=== PATIENT | female | born 1990 | race African-American/Black ===

== ENCOUNTER 2020-12-24 13:46 | Inpatient (IN) ==
[2020-12-24] MEDS ORDERED: OXYTOCIN 30 UNITS/500 ML BAG IV PRN ×2 (13:49→16:31)
[2020-12-24 14:11] LABS: Hematocrit (blood only) 32.6 % (37-47); Hemoglobin 11.1 g/dL (12.0-16.0); Mean Corpuscular Hemoglobin 29.6 pg (25-34); Mean Corpuscular Volume 86.9 fL (80-100); Mean Platelet Volume 9.7 fL (7.4-10.4); Platelet Count 225 K/uL (130-400); RDW Coefficient of Variation 15.7 % (11.5-14.5); RDW Standard Deviation 50.7 fL (36.4-46.3); Red Blood Count 3.75 M/uL (4.2-5.4); White Blood Count 5.71 K/uL (4.8-10.8)
[2020-12-24 14:37] LABS: Albumin Level 2.4 gm/dl (3.4-5.0); BUN Creatinine Ratio 10.1 (10-20); Calcium 7.6 mg/dl (8.5-10.1); Creatinine Clr Calc Pharmacy 117.8 ml/min; Est GFR (African American) 133.8; Est GFR (Non-African American) 115.5; Potassium 3.2 mmol/L (3.5-5.1)
[2020-12-24 14:39] LABS: Albumin Globulin Ratio 0.5 (0.9-2); Bilirubin,Total 0.3 mg/dl (0.2-1); Globulin 4.8 gm/dl (2.5-4.0); Total Protein 7.2 gm/dl (6.4-8.2)
[2020-12-24] MEDS: LACTATED RINGER'S 1,000 ML IV PRN ×2 (14:44→19:07)
[2020-12-24] MEDS ORDERED: SODIUM CHLORIDE 0.9% INJ 10 ML VIAL ONE (19:35)
[2020-12-24] MEDS ORDERED: fentaNYL citrate 100 MCG/2 ML VIAL ONE (19:35)
[2020-12-24] MEDS ORDERED: BUPIVACAINE 0.25% 30 ML VIAL ONE ×2 (19:35→23:25)
[2020-12-24] MEDS ORDERED: ePHEDrine sulfate 50 MG/ML AMP ONE (19:35)
[2020-12-24] MEDS ORDERED: fentaNYL 2MCG/ML ROPIVACAINE 1.25MG/ML 100 ML BAG EPI ONE (19:35)
[2020-12-24] MEDS ORDERED: NALOXONE HCL 1 MG in SODIUM CHLORIDE 0.9% 1000ML 1,000 ML IV PRN (19:44)
[2020-12-24] MEDS ORDERED: ePHEDrine sulfate 50 MG/ML AMP IV PRN (19:44)
[2020-12-24] MEDS ORDERED: ONDANSETRON INJ 2 MG/ML 2 ML VIAL IV PRN (19:44)
[2020-12-24] MEDS ORDERED: diphenhydrAMINE 50 MG/ML VIAL IV PRN (19:44)
[2020-12-24] MEDS ORDERED: NALOXONE HCL 0.4 MG/1 ML VIAL/CARP IV PRN (19:44)
[2020-12-24] MEDS ORDERED: fentaNYL 2MCG/ML ROPIVACAINE 1.25MG/ML 100 ML BAG EPI PRN ×2 (19:44→23:35)
--- NOTE | 2020-12-24 19:51 | Anesthesiology Consultation ---
Date of Service December 24, 2020 Covid 19 negative on 12/24/20. Assessment & Plan Chart Review Chart Review: Patient NOT seen in Pre Admission Testing and Acceptable Risk for Labor Epidural Consults Requested none ASA ASA2 Proposed Anesthesia Anesthesia Type: Labor Epidural and CSE Risk / Benefits Reviewed With: PT / POA / Parent / Guardian, Accepts Plan and Informed Consent Obtained History Height/Weight Height: 5 ft 6 in Weight: 71.214 kg Allergies Allergy/AdvReac Type Severity Reaction Status Date / Time No Known Allergies Allergy Verified 12/24/20 13:59 Medications Home Medications Medication Instructions Recorded Confirmed Last Taken folic acid 5 mg PO DAILY 12/24/20 12/24/20 12/23/20 08:00 prenat.vits,glenn,jvb-raki-tnmja 1 tab PO DAILY 12/24/20 12/24/20 12/23/20 08:00 [ Vitamin] Active Medications Generic Name Dose Route Start Last Admin Trade Name Freq PRN Reason Stop Dose Admin Lactated Ringer's 1,000 mls @ 125 mls/hr 12/24/20 13:49 12/24/20 19:07 Lr IV 12/26/20 13:48 125 mls/hr .Q8H PRN Administration L&D Protocol Protocol Oxytocin 30 units in 500 mls @ 5 mls/hr 12/24/20 16:31 12/24/20 18:30 Pitocin IV 12/26/20 16:30 0.3 units/hr .Q24H PRN 5 mls/hr Labor Induction/Augmentation Titration Protocol 0.3 UNITS/HR NPO Date Last Intake of Fluids: 12/24/20 Time Last Intake of Fluids: 19:00 Date Last Intake of Solids: 12/24/20 Time Last Intake of Solids: 13:00 Past Medical History Medical History Miscarriage Patient denies significant medical history Exercise / Class Metabolic Activity II 4-5 Yardwork/Stairs/Walk up hill Past Family History Family History Denies family history of Ovarian cancer Breast cancer Colorectal cancer Past Surgical History Surgical History No history of previous surgery Past Anesthesia History No Hx of Anesthesia Complications and No Family Hx of Anesthesia Complications History of PONV No Hx of PONV and No Hx of Motion Sickness Social History Smoking Status: Never smoker Hx Alcohol Use: No Hx Substance Use: No substance use type: does not use Review of Systems no chest pain or sob Physical Exam Vital Signs Last Vital Signs Temp 36.8 C 12/24/20 19:15 Pulse 80 12/24/20 19:44 Resp 18 12/24/20 19:15 BP 92/57 L 12/24/20 19:22 Pulse Ox 98 12/24/20 19:44 ENMT Mouth: no TMJ abnormality Thyromental Distance: > or= 3.5 Finger Breadths Mallampati Class: II Neck normal visual inspection Respiratory normal respiratory effort Auscultation: lungs clear to auscultation bilaterally Cardiovascular Rate/Rhythm: regular rate and regular rhythm Musculoskeletal Spine: normal cervical ROM Neurologic moves all extremities Psychiatric Orientation: alert and oriented x 3 Testing Laboratory Results 12/24/20 13:58 12/24/20 13:58
--- NOTE | 2020-12-24 21:14 | Labor Progress Brief Note ---
Date of Service December 24, 2020 Subjective Comfortable with epidural Assessment & Plan Admission and Anticipated Discharge Date Admission Date: December 24, 2020 Physical Exam Physical Exam: 3/80/-2 LOF minimal, clear per RN FHT cat 1 Mercedes Q4 Pit @ 7 Results & Data ([facility]) Vital Signs (Past 12 Hours) Vital Signs Temp Pulse Resp BP Pulse Ox 12/24/20 21:10 81 99 12/24/20 21:05 84 98 12/24/20 21:00 76 18 98 12/24/20 20:58 80 105/67 12/24/20 20:55 80 99 12/24/20 20:50 76 97 12/24/20 20:45 77 97 12/24/20 20:44 75 106/60 12/24/20 20:40 74 98 12/24/20 20:35 74 98 12/24/20 20:30 75 18 105/59 L 97 12/24/20 20:24 82 97 12/24/20 20:19 79 97 12/24/20 20:15 18 12/24/20 20:14 77 97 12/24/20 20:13 82 100/65 12/24/20 20:11 83 100/62 12/24/20 20:09 79 101/60 98 12/24/20 20:08 88 103/58 L 12/24/20 20:05 83 107/66 12/24/20 20:04 91 H 120/71 97 12/24/20 19:59 75 99 12/24/20 19:54 88 100 12/24/20 19:49 86 100 12/24/20 19:44 80 98 12/24/20 19:22 85 92/57 L 12/24/20 19:15 98.2 F 18 12/24/20 19:06 80 88/55 L 12/24/20 19:05 75 88/50 L 12/24/20 19:04 77 126/47 L 12/24/20 15:57 98.1 F 90 18 106/59 L 12/24/20 15:56 90 106/59 L 12/24/20 13:53 86 108/65 12/24/20 13:52 98.1 F 18 Coding Level of Care Code None
--- NOTE | 2020-12-25 02:22 | Delivery Summary ---
Vaginal Delivery Summary Date of Service December 25, 2020 Vaginal Delivery Summary DIAGNOSES: 1. Rader intrauterine at 39w1d gestation. 2. PROM. 3. Group B Streptococcus unknown, collected yesterday. 4. IUGR (9% EFW) PROCEDURE: Spontaneous vaginal delivery and repair of 1st degree laceration. SURGEON: Dee Enamorado MD. DIRECTOR OF CODING: None. ESTIMATED BLOOD LOSS: 250 mL. COMPLICATIONS: None. PLACENTA: Spontaneous and intact with a 3-vessel cord. DISPOSITION: Stable to labor and delivery. DESCRIPTION: The patient pushed well and brought the head to in OA position. The infant's head was allowed to deliver with contraction force and no further active pushing, with the perineum protected during this time. The shoulders delivered easily with a maternal pushing effort. There was no nuchal cord. The body delivered without any difficulty, and the infant was placed on the maternal abdomen. It was vigorous and moving all extremities, and making respiratory efforts. The cord was doubly clamped by the MD and then cut. The placenta delivered spontaneously and was noted to be intact and with a 3VC. The cervix, vagina and perineum were examined and were found to have a first degree laceration which was repaired with 3-0 vicryl in a running locked manner. The fundus was firm and lochia minimal immediately after delivery. [facility] Vaginal Delivery Charge Vaginal Delivery Codes: 24968 global code for the antepartum, delivery, and post-
[2020-12-25] MEDS ORDERED: HYDROCORTISONE ACETATE 25 MG SUPP PR PRN (03:54)
[2020-12-25] MEDS ORDERED: ACETAMINOPHEN 325 MG TAB PO PRN (03:54)
[2020-12-25] MEDS ORDERED: oxyCODONE/ACETAMINOPHEN 5mg/325mg TAB PO PRN (03:54)
[2020-12-25] MEDS ORDERED: SUPERCREAM 0.870% 15 GM JAR EXT PRN (03:54)
[2020-12-25] MEDS ORDERED: DIPHTHERIA/TETANUS/PERTUSSIS 0.5 ML SYR/VIAL IM ONE (03:54)
[2020-12-25] MEDS ORDERED: IBUPROFEN 600 MG TAB PO ONE (03:57)
[2020-12-25] MEDS: PRENATAL VITAMIN 1 TAB PO SCH (07:44)
[2020-12-25] MEDS: DOCUSATE SODIUM 100 MG CAP PO SCH (07:44)
[2020-12-25] MEDS: IBUPROFEN 600 MG TAB PO PRN ×2 (11:34→17:53)
[2020-12-26] MEDS: IBUPROFEN 600 MG TAB PO PRN ×2 (04:31→15:40)
[2020-12-26 06:01] LABS: Hematocrit (blood only) 29.5 % (37-47); Hemoglobin 9.8 g/dL (12.0-16.0); Mean Corpuscular Hemoglobin 28.7 pg (25-34); Mean Corpuscular Hgb Conc 33.2 g/dL (32-36); Mean Corpuscular Volume 86.3 fL (80-100); Mean Platelet Volume 9.9 fL (7.4-10.4); Platelet Count 209 K/uL (130-400); RDW Coefficient of Variation 15.7 % (11.5-14.5); RDW Standard Deviation 49.7 fL (36.4-46.3); Red Blood Count 3.42 M/uL (4.2-5.4); White Blood Count 8.17 K/uL (4.8-10.8)
[2020-12-26] MEDS: DOCUSATE SODIUM 100 MG CAP PO SCH (09:12)
[2020-12-26] MEDS: BENZOCAINE 20% AER SPR 82.5 GM CAN EXT PRN ×2 (09:12→15:40)
[2020-12-26] MEDS: PRENATAL VITAMIN 1 TAB PO SCH (09:12)
--- NOTE | 2020-12-26 09:38 | Anesthesia Procedure Note ---
Date of Service December 26, 2020 Anesthesia Post Epidural Note Vital Signs Vital Signs: Temp Pulse Resp BP Pulse Ox 36.7 C 72 18 109/74 97 12/25/20 23:30 12/25/20 23:30 12/25/20 23:30 12/25/20 23:30 12/25/20 19:45 Pain Intensity Abdomen: Pain Intensity: 2 Notes Mental Status: alert / awake / arousable Pain: adequately controlled Airway Patency, RR, SpO2: stable & adequate BP & HR: stable & adequate Hydration State: stable & adequate Anesthetic Complications: no major complications apparent Epidural: Removed without complications and With tip intact
--- NOTE | 2020-12-26 09:49 | Obstetrical Progress Note ---
Date of Service December 26, 2020 Assessment & Plan (1) Encounter for postoperative care: 30yo s/p . Doing well. Stable for discharge Subjective Ambulation: ambulating normally Voiding: no voiding problems Passing Gas:: Yes Diet Tolerance:: regular diet Lochia:: Moderate Physical Exam Constitutional WD/WN, vitals as above Respiratory normal respiratory effort; no respiratory distress and no labored breathing Gastrointestinal (Abdomen) Inspection/Auscultation: abdomen normal to inspection; abdomen not distended Percussion/Palpation: abdomen soft; abdomen nontender, no guarding and abdomen not rigid Genitourinary OB Exam Abdomen: + fundal height Fundus: + firm and + relation to umbilicus (Below); not tender and not boggy Results & Data ([facility]) Vital Signs (Past 12 Hours) Vital Signs Temp Pulse Resp BP 12/25/20 23:30 36.7 C 72 18 109/74
== END 2020-12-26 17:30 | disposition home or self-care (01) | DRG 807 ==
LOC: 4S1 13:46 → OPB 13:46 → 4S1 13:50 → 4N 12-25 06:32

== ENCOUNTER 2024-09-02 18:09 | Inpatient (IN) ==
[2024-09-02] MEDS ORDERED: LIDOCAINE 1% LOCAL 20 ML VIAL INFIL PRN (19:52)
[2024-09-02] MEDS ORDERED: OXYTOCIN 30 UNITS/NSS 30 UNITS/500 ML BAG IV PRN (19:52)
[2024-09-02 20:21] LABS: Hematocrit (blood only) 34.4 % (37.0-47.0); Hemoglobin 11.5 g/dl (12.0-16.0); Mean Corpuscular Hemoglobin 29.1 pg (25.0-34.0); Mean Corpuscular Hgb Conc 33.4 g/dL (32.0-36.0); Mean Corpuscular Volume 87.1 fL (80.0-100.0); Mean Platelet Volume 10.1 fL (9.4-12.4); Platelet Count 242 K/uL (130-400); RDW Coefficient of Variation 13.3 % (11.5-14.5); RDW Standard Deviation 41.9 fL (36.4-46.3); Red Blood Count 3.95 M/uL (4.20-5.40); White Blood Count 7.36 K/ul (4.8-10.8)
--- NOTE | 2024-09-02 20:23 | History & Physical Report ---
Date of Service September 02, 2024 Assessment & Plan (1) Placental abnormality: Plan: 33 yo at 40 2/7 wga presents for IOL VSS Fetus cat 1 Labor - 35cc kennedy bulb placed after consent obtained. Will start pit GBS neg epidural prn Admission and Anticipated Discharge Date Admission Date: September 02, 2024 History of Present Illness Chief Complaint: IOL Primary Care Provider: NO PCP 33 yo at 40 2/7 wga presents for IOL. 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 2018 G2 SAB G3 2020 denies hx stis Allergies Allergy/AdvReac Type Severity Reaction Status Date / Time No Known Allergies Allergy Verified 09/01/24 13:20 Home Medications Medication Instructions Recorded Confirmed Type vit no.95-ferrous 1 tab PO DAILY 01/22/24 09/01/24 History fumarate 28 mg-folic acid 800 mcg tablet () Patient History Medical History (Updated 07/08/24 @ 11:02 by Ivory Mccann MD, FACOG) Threatened Encounter to determine viability of Encounter for IUD removal IUGR (intrauterine growth restriction) affecting care of mother Miscarriage Patient denies significant medical history Surgical History No history of previous surgery Family History Denies family history of Ovarian cancer Breast cancer Colorectal cancer Social History (Updated 02/15/24 @ 14:12 by Yoly Mckoy RN) Smoking Status: Never smoker Do You Dip or Chew Tobacco: No; Hx Alcohol Use: No Hx Substance Use: No Preferred Language: Georgian Visual Impairment: No Limitations 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 Required: No Beliefs That Will Affect Care: None marital status: marital status details: Dana (33) [phone] Current Living Situation: Spouse Current Living Situation Comment: lives with and 2 children current occupational status: unemployed 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 Feels Safe at Home: Yes Assistive Devices: None Physical Exam Genitourinary: OB Exam Abdomen: + vertex and + estimated weight (7-8) Manual OB Exam: + cervical dilation (1.5), + cervical effacement 50% and + station -2 OB Exam Monitor Tracing: + external FHT monitor used, + external uterine monitor used (irreg) and + category I (140/mod/+accel/-decel) Results & Data Vital Signs (Past 12 Hours) Vital Signs Temp Pulse Resp BP 09/02/24 19:29 95 H 124/76 09/02/24 19:26 18 09/02/24 19:26 98.8 F 18 Laboratory Results OB Labs: Blood Type O Positive 02/19/24 Antibody Screen NEGATIVE 02/19/24 Hgb 11.0 g/dl (12.0-16.0) L 06/11/24 Hct 33.1 % (37.0-47.0) L 06/11/24 MCV 86.0 fL (80.0-100.0) 02/19/24 Plt Count 358 K/uL (130-400) 02/19/24 Rubella IgG Antibody Immune (Immune) 02/19/24 RPR Nonreactive (Nonreactive) 02/19/24 Treponema pallidum Ab Negative (Negative) 06/11/24 Hep Bs Antigen Neg (Neg) 11/23/20 Hep Bs Antigen NON-REACTIVE (NON-REACTIVE) 02/19/24 Hepatitis C Ab (EIA) NON-REACTIVE (NON-REACTIVE) 02/19/24 HIV 1&2 Ab/P24 Ag 4thGn Neg (Neg) 11/23/20 HIV (1&2) Ag & Ab Conf NON-REACTIVE (NON-REACTIVE) 02/19/24 Glucose 1 Hr 50 gm 121 mg/dl (70-130) 06/11/24 OB Optional Labs: Chlamydia trachomatis RNA Not Detected (NotDetected) 02/19/24 Neisseria gonorrhoeae RNA Not Detected (NotDetected) 02/19/24 GBS neg Diagnostic Findings 08/05 EFW 43%, ant plac Coding Level of Care Code None Diagnoses Placental abnormality O43.109
[2024-09-02] MEDS: OXYTOCIN 30 UNITS/NSS 30 UNITS/500 ML BAG IV PRN (21:34)
[2024-09-02] MEDS: LACTATED RINGER'S 1,000 ML IV SCH (21:35)
[2024-09-02] MEDS ORDERED: NALOXONE HCL 1 MG in SODIUM CHLORIDE 0.9% 1,000 ML IV PRN (23:52)
[2024-09-02] MEDS ORDERED: ePHEDrine sulfate 50 MG/ML AMP IV PRN (23:52)
[2024-09-02] MEDS ORDERED: BUPIVACAINE 0.25% PF 30 ML VIAL EPI PRN (23:52)
[2024-09-02] MEDS ORDERED: diphenhydrAMINE 50 MG/ML VIAL IV PRN (23:52)
[2024-09-02] MEDS ORDERED: fentANYL 2 MCG/ML BUPIVacaine 0.125%-NSS 100ML BAG EPI PRN (23:52)
[2024-09-02] MEDS ORDERED: fentaNYL citrate PF 100 MCG/2 ML VIAL EPI PRN (23:52)
[2024-09-02] MEDS ORDERED: NALOXONE HCL 0.4 MG/1 ML VIAL/CARP IV PRN (23:52)
[2024-09-02] MEDS ORDERED: ONDANSETRON INJ 2 MG/ML 2 ML VIAL IV PRN (23:52)
[2024-09-02] MEDS ORDERED: ROPIVACAINE 0.5% PF 5 MG/ML 20 ML VIAL EPI PRN (23:52)
[2024-09-02] MEDS ORDERED: NALBUPHINE HCL INJ 10 MG/ML AMP IV PRN (23:52)
[2024-09-02] MEDS ORDERED: SODIUM CHLORIDE 0.9% PF INJ 10 ML VIAL EPI PRN (23:52)
[2024-09-02] MEDS ORDERED: LIDOCAINE 2% MPF LOCAL 5 ML VIAL EPI PRN (23:52)
--- NOTE | 2024-09-02 23:54 | Anesthesiology Consultation ---
Date of Service September 02, 2024 Assessment & Plan (1) Encounter for pre-operative examination: Chart Review Chart Review: Patient NOT seen in Pre Admission Testing and Acceptable Risk for Labor Epidural Consults Requested none History Height/Weight Height: 5 ft 6 in Weight: 83.915 kg Allergies Allergy/AdvReac Type Severity Reaction Status Date / Time No Known Allergies Allergy Verified 09/01/24 13:20 Medications Home Medications Medication Instructions Recorded Confirmed Last Taken vit no.95-ferrous 1 tab PO DAILY 01/22/24 09/01/24 1 Week Ago fumarate 28 mg-folic acid 800 mcg ~08/25/24 tablet () Active Medications Generic Name Dose Route Start Last Admin Trade Name Freq PRN Reason Stop Dose Admin Oxytocin 30 units in 500 mls @ 4 mls/hr 09/02/24 19:52 09/02/24 22:30 Pitocin 30 Units/Nss IV 09/04/24 19:51 0.24 units/hr .Q24H PRN 4 mls/hr Labor Induction/Augmentation Titration Protocol 0.24 UNITS/HR Lactated Ringer's 1,000 mls @ 50 mls/hr 09/02/24 21:00 09/02/24 23:45 Lr IV 09/03/24 20:59 999 mls/hr .Q20H BRUCE Titration Past Medical History Medical History (Updated 09/02/24 @ 23:54 by Min Marshall MD) Encounter for pre-operative examination IUGR (intrauterine growth restriction) affecting care of mother Patient denies significant medical history Past Family History Family History Denies family history of Ovarian cancer Breast cancer Colorectal cancer Past Surgical History Surgical History No history of previous surgery Social History Smoking Status: Never smoker Do You Dip or Chew Tobacco: No Hx Alcohol Use: No Hx Substance Use: No substance use type: does not use Physical Exam Vital Signs Last Vital Signs Temp 37.1 C 09/02/24 19:54 Pulse 81 09/03/24 00:13 Resp 18 09/02/24 22:30 BP 113/67 09/03/24 00:13 Pulse Ox 97 09/03/24 00:08 Testing Laboratory Results 09/02/24 20:07
[2024-09-03] MEDS: fentANYL 2 MCG/ML BUPIVacaine 0.125%-NSS 100ML BAG ONE (00:19)
[2024-09-03] MEDS: fentaNYL citrate PF 100 MCG/2 ML VIAL ONE (00:21)
[2024-09-03] MEDS: BUPIVACAINE 0.25% PF 30 ML VIAL ONE (00:21)
[2024-09-03] MEDS: LIDOCAINE 2%/EPINEPHRINE 1:200,000 20 ML PF ONE (00:22)
[2024-09-03] MEDS: BUPIVACAINE 0.25% PF 30 ML VIAL EPI STA (00:58)
[2024-09-03] MEDS: SODIUM CHLORIDE 0.9% PF INJ 10 ML VIAL ONE (00:58)
[2024-09-03] MEDS: ePHEDrine sulfate 50 MG/ML AMP ONE (00:58)
[2024-09-03] MEDS: SODIUM CHLORIDE 0.9% PF INJ 10 ML VIAL EPI STA (00:59)
[2024-09-03] MEDS: fentaNYL citrate PF 100 MCG/2 ML VIAL EPI STA (00:59)
[2024-09-03] MEDS: LIDOCAINE 2%/EPINEPHRINE 1:200,000 20 ML PF EPI STA (00:59)
--- NOTE | 2024-09-03 03:42 | Labor Progress Brief Note ---
Date of Service September 03, 2024 Subjective comfortable w/ epidural, balloon out Assessment & Plan (1) Placental abnormality: Plan: 33 yo at 40 2/7 wga presents for IOL VSS Fetus cat 1 Labor - bulb out, now 5+, bulging bag. Discussed arom, had to go home to watch other two kids and no one able to watch the kids right now. She would like to wait a little bit to see if will slowly progress on own and then he can make it back when childcare is available. Aware body may progress w/ srom or become complete in b/w GBS neg epidural in place Admission and Anticipated Discharge Date Admission Date: September 02, 2024 Physical Exam Genitourinary: Manual OB Exam: + cervical dilation 5 cm, + cervical effacement 70% and + station -1 and 0 OB Exam Monitor Tracing: + external FHT monitor used, + external uterine monitor used (q3) and + category I (140/mod/+accel/+early decel) bulging bag Results & Data Vital Signs (Past 12 Hours) Vital Signs Temp Pulse Resp BP Pulse Ox 09/03/24 03:33 85 98 09/03/24 03:28 85 95 09/03/24 03:26 80 113/59 L 09/03/24 03:23 81 98 09/03/24 03:18 85 94 09/03/24 03:13 81 96 09/03/24 03:10 84 110/59 L 09/03/24 03:08 86 98 09/03/24 03:03 95 H 97 09/03/24 03:00 86 18 94 09/03/24 02:58 85 97 09/03/24 02:53 99 H 98 09/03/24 02:48 93 H 96 09/03/24 02:43 88 96 09/03/24 02:40 100 H 115/58 L 09/03/24 02:38 88 95 09/03/24 02:35 80 94 09/03/24 02:33 84 97 09/03/24 02:30 18 09/03/24 02:30 18 09/03/24 02:28 85 95 09/03/24 02:25 81 117/59 L 09/03/24 02:23 84 95 09/03/24 02:19 86 94 09/03/24 02:18 88 96 09/03/24 02:13 89 96 09/03/24 02:10 86 110/62 09/03/24 02:08 88 95 09/03/24 02:03 81 95 09/03/24 01:58 86 96 09/03/24 01:56 96 H 119/67 09/03/24 01:53 91 H 96 09/03/24 01:49 88 94 09/03/24 01:48 82 94 09/03/24 01:43 83 95 09/03/24 01:40 89 120/66 09/03/24 01:38 80 94 09/03/24 01:37 83 94 09/03/24 01:33 80 95 09/03/24 01:32 85 94 09/03/24 01:30 18 09/03/24 01:30 18 09/03/24 01:28 81 94 09/03/24 01:27 83 94 09/03/24 01:25 80 115/67 09/03/24 01:23 79 95 09/03/24 01:18 80 95 09/03/24 01:13 82 97 09/03/24 01:10 81 120/69 09/03/24 01:08 88 98 09/03/24 01:03 85 96 09/03/24 01:00 18 09/03/24 01:00 18 09/03/24 00:58 83 96 09/03/24 00:57 94 H 116/75 09/03/24 00:53 81 96 09/03/24 00:48 80 97 09/03/24 00:43 83 98 09/03/24 00:41 85 119/72 09/03/24 00:38 80 95 09/03/24 00:33 82 97 09/03/24 00:30 18 09/03/24 00:30 98.6 F 18 09/03/24 00:28 86 97 09/03/24 00:25 81 115/65 09/03/24 00:23 86 97 09/03/24 00:22 86 119/64 09/03/24 00:20 86 119/63 09/03/24 00:19 88 121/67 09/03/24 00:18 86 97 09/03/24 00:16 87 116/66 09/03/24 00:13 96 09/03/24 00:13 89 09/03/24 00:13 81 113/67 09/03/24 00:10 81 117/70 09/03/24 00:08 80 97 09/02/24 23:18 82 117/60 09/02/24 22:30 18 09/02/24 22:30 18 09/02/24 19:54 98.8 F 18 09/02/24 19:29 95 H 124/76 09/02/24 19:26 18 09/02/24 19:26 98.8 F 18 Coding Level of Care Code None Diagnoses Placental abnormality O43.109
--- NOTE | 2024-09-03 06:14 | Delivery Summary ---
Vaginal Delivery Summary Date of Service September 03, 2024 Vaginal Delivery Summary [facility] PREOPERATIVE DIAGNOSIS: 1. Single intrauterine at 40 3/7 wga 2. Possible placental restrepo POSTOPERATIVE DIAGNOSIS: 1. Single intrauterine at 40 3/7 wga 2. Possible placental restrepo 3. Delivered PROCEDURE: 1. Normal spontaneous vaginal delivery. SURGEON: Thelma Yoon MD ANESTHESIA: Epidural. QUANTITATIVE BLOOD LOSS: 112 mL FLUIDS: Continuous LR. URINE OUTPUT: None. COMPLICATIONS: None. CONDITION: Stable. INDICATIONS: 33 yo at 40 3/7 wga presented for IOL. Induction was begun with kennedy bulb and pitocin. She received an epidural for pain control and bulb was found to be expulsed. She underwent srom and became complete and desired to push. FINDINGS: A viable female infant, weight pending with Apgars of 8 and 9 at 1 and 5 minutes respectively. SPECIMEN: Cord blood OPERATIVE REPORT: The patient progressed to 10 cm, 100% effaced and +2 station, pushed over intact perineum with anesthesia to deliver a viable female infant, weight and Apgars as above. Head of delivered in OA position. Tight nuchal cord could not be easily reduced. Body and shoulders were delivered without difficulty. was delivered to maternal abdomen and nursing staff. Delayed cord clamping was performed for 60 seconds. Cord was clamped and cut. Cord blood was obtained. Placenta delivered spontaneously intact with 3-vessel cord. IV oxytocin and fundal massage were given for excellent hemostasis. Vagina, cervix, perineum, and placenta were inspected. No lacerations were noted. Sponge and needle counts correct x2. No sponges were left behind. Mother and stable in immediate period. [facility] Vaginal Delivery Charge Vaginal Delivery Codes: 35312 global code for the antepartum, delivery, and post- Delivery Type Details: [facility]
[2024-09-03] MEDS ORDERED: BENZOCAINE 20% SPRY 85 APPLN/85 GM CAN EXT PRN (06:21)
[2024-09-03] MEDS ORDERED: OXYTOCIN 30 UNITS/NSS 30 UNITS/500 ML BAG IV PRN (06:21)
[2024-09-03] MEDS ORDERED: ACETAMINOPHEN 325 MG TAB PO PRN (06:21)
[2024-09-03] MEDS ORDERED: HYDROCORTISONE ACETATE 25 MG SUPP PR PRN (06:21)
--- NOTE | 2024-09-03 08:21 | Anesthesia Procedure Note ---
Date of Service September 03, 2024 Anesthesia Post Epidural Note Vital Signs Vital Signs: Temp Pulse Resp BP Pulse Ox 36.7 C 84 20 124/68 98 09/03/24 06:45 09/03/24 08:19 09/03/24 07:15 09/03/24 08:19 09/03/24 05:53 Notes Mental Status: alert / awake / arousable Nausea / Vomiting: adequately controlled Pain: adequately controlled Airway Patency, RR, SpO2: stable & adequate BP & HR: stable & adequate Hydration State: stable & adequate Neuraxial Anesthesia: was administered and sensory block is resolving Anesthetic Complications: no major complications apparent and Pt Satisfied with anesthetic care Epidural: Removed without complications and With tip intact
[2024-09-03] MEDS: DOCUSATE SODIUM 100 MG CAP PO SCH (09:38)
[2024-09-03] MEDS: FERROUS SULFATE 325 MG TAB PO SCH (09:38)
[2024-09-03] MEDS: PRENATAL VITAMIN 1 TAB PO SCH (09:38)
[2024-09-03] MEDS: IBUPROFEN 600 MG TAB PO PRN (12:24)
[2024-09-03] MEDS: DIPHTHER/TETAN/PERTUS Vaccine (Tdap, Adol/Adult) 0.5mL IM ONE (19:26)
[2024-09-04 00:17] VITALS: O2SAT 99
--- NOTE | 2024-09-04 05:41 | Obstetrical Progress Note ---
Date of Service September 04, 2024 Assessment & Plan (1) Encounter for care and examination after delivery: Plan Encourage ambulation Encourage breast feeding Consult as needed Pain meds as needed Anticipate DC to home today Admission and Anticipated Discharge Date Admission Date: September 02, 2024 Supervising Physician Co-Signing Physician Notes Resident Physician Supervision Note: I interviewed and examined the patient. Discussed with Dr. Aragon and agree with findings and plan as documented in the note. Any exceptions or clarifications are listed here: Doing well. Desires d/c today. Instructions reviewed. Documented By: Ramonita Garber MD, FACOG Subjective Pt is 33 yo post- day 1 s/p at 40w2d Ambulation:In and out of room Voiding:voiding normally Passing gas: yes BM: no Diet tolerance:regular diet Lochia:bloody, no clots Feeding type: breast, somewhat painful with latching Current pain level: 00-3 /10 improved with ibuprofen Resting comfortably this morning in NAD. Denies TAM, CP, SOB, N/V/D, LE pain/swelling. Review of Systems Review of Systems: As per HPI Physical Exam Constitutional: WD/WN, vitals as above Respiratory: normal respiratory effort, lungs clear to auscultation Cardiovascular: RRR, no murmur, no edema Gastrointestinal (Abdomen): normal bowel sounds, soft, nontender, no hepatosplenomegaly Uterine fundus firm and 1-2 cm below umbilicus Neurologic: PERRL, EOMI, accommodation nl, no face palsy, no dysarthria Moving all 4 extremities on command Psychiatric: A+Ox3, euthymic affect Results & Data Vital Signs (Past 12 Hours) Vital Signs Temp Pulse Resp BP Pulse Ox O2 Del Method 09/04/24 04:00 36.6 C 78 16 109/73 99 Room Air 09/04/24 00:00 36.5 C 78 16 125/81 99 Room Air 09/03/24 20:30 37.1 C 78 16 113/76 98 Room Air Resident Activity Tracking Resident Involvement: Resident Care Provided Care Provided: Adult Hospital Medicine
[2024-09-04] MEDS: bisacodyL 5 MG TABEC PO SCH (09:06)
[2024-09-04 09:17] VITALS: BP 130/82; PULSE 90; RESP 18; TEMP 99
[2024-09-04] MEDS: bisacodyL 5 MG TABEC PO ONE (15:50)
[2024-09-05] MEDS ORDERED: bisacodyL 10 MG SUPP PR PRN (06:21)
== END 2024-09-04 13:00 | disposition home or self-care (01) | DRG 807 ==
LOC: 4S1 19:06 → 4E1 09-03 09:40